=== PATIENT | female | born 1930 | race Caucasian/White ===

== ENCOUNTER → 2017-01-30 | Outpatient (CLI) | payer OTHER ==
[~2017-01-30] MED LIST: BAYER CHEWABLE81 MG PO; COREG6.25 MG PO; CULTURELLE1 EACH PO; CYMBALTA60 MG PO; DUONEB 2.5-0.5 M3 ML INH; FLOMAX0.4 MG PO; GLUCERNA237 M1 PO; GLUTOSE GEL 1515 G1 PO; HYDROCODONE-AP1 EAC6 PO; IRON325 PO; KEFLEX500 M1 PO; LANOXIN 0.120.125 M1 PO; LANTUS100 UNIT/M SUBQ; LASIX 40 MG TAB40 M2 PO; LISINOPRIL2.5 MG PO; NOVOLOG100 UNIT/1 SUBQ; PEPCID20 MG PO; POTASSIUM20 PO; PROAIR HFA8.5 GM INH; REMERON15 MG PO; TRAMADOL 50 MG50 MG PO; TYLENOL325 MG PO; VITAMIN D31000 UNI3 PO
== END ==
LOC: ULTRA 09:11
DX: R10.9 Unspecified abdominal pain (principal); R63.4 Abnormal weight loss

== ENCOUNTER 2017-01-31 22:50 | Emergency (ER) | payer OTHER ==
[~2017-01-31] VITALS: Ht 180.3 cm; Wt 76.7 kg
[2017-01-31] MEDS ORDERED: DUONEB 2.5-0.5 M3 ML INH (23:01)
[2017-01-31] MEDS ORDERED: TYLENOL325 MG PO (23:02)
[2017-01-31] MEDS ORDERED: HYDROCODONE-AP1 EAC6 PO (23:02)
[2017-01-31] MEDS ORDERED: GLUTOSE GEL 1515 G1 PO (23:03)
[2017-01-31] MEDS ORDERED: PROAIR HFA8.5 GM INH (23:03)
[2017-01-31] MEDS ORDERED: LANTUS100 UNIT/M SUBQ (23:04)
[2017-01-31] MEDS ORDERED: REMERON15 MG PO (23:04)
[2017-01-31] MEDS ORDERED: LASIX 40 MG TAB40 M2 PO (23:05)
[2017-01-31] MEDS ORDERED: LISINOPRIL2.5 MG PO (23:05)
[2017-01-31] MEDS ORDERED: NOVOLOG100 UNIT/1 SUBQ (23:05)
[2017-01-31] MEDS ORDERED: POTASSIUM20 PO (23:05)
[2017-01-31] MEDS ORDERED: BAYER CHEWABLE81 MG PO (23:06)
[2017-01-31] MEDS ORDERED: VITAMIN D31000 UNI3 PO (23:06)
[2017-01-31] MEDS ORDERED: COREG6.25 MG PO (23:06)
[2017-01-31] MEDS ORDERED: IRON325 PO (23:06)
[2017-01-31] MEDS ORDERED: CYMBALTA60 MG PO (23:07)
[2017-01-31] MEDS ORDERED: PEPCID20 MG PO (23:07)
[2017-01-31] MEDS ORDERED: LANOXIN 0.120.125 M1 PO (23:07)
[2017-01-31] MEDS ORDERED: CULTURELLE1 EACH PO (23:07)
[2017-01-31] MEDS ORDERED: GLUCERNA237 M1 PO (23:08)
[2017-02-01] MEDS ORDERED: TRAMADOL 50 MG50 MG PO (00:59)
[2017-02-01 01:31] LABS: URINE BILIRUBIN NEGATIVE (Negative); URINE BLOOD NEGATIVE (Negative); URINE COLOR YELLOW; URINE GLUCOSE-RANDOM* NEGATIVE (Negative); URINE KETONES NEGATIVE (Negative); URINE PROTEIN (DIPSTICK) NEGATIVE (Negative); URINE UROBILINOGEN 0.2 E.U./dl (0.2-1.0)
[2017-02-01 01:38] LABS: URINE LEUKOCYTES-REFLEX 3+ (Negative)
[2017-02-01 01:41] LABS: CASTS None Seen /LPF (None Seen); SQUAMOUS None Seen /LPF (0-3)
[2017-02-01 01:42] LABS: CRYSTALS None Seen /LPF (None Seen); URINE RBC None Seen /HPF (0-2)
[2017-02-01] MEDS ORDERED: KEFLEX500 M1 PO (01:52)
[2017-02-01] MEDS ORDERED: FLOMAX0.4 MG PO (01:52)
[2017-02-01 02:10] VITALS: BP 98/49
== END 2017-02-01 02:10 ==
LOC: ER 22:50
PROVIDERS: Emergency Medicine
DX: S02.2XXA Fracture of nasal bones, initial encounter for closed fracture (principal); N39.0 Urinary tract infection, site not specified; I11.0 Hypertensive heart disease with heart failure; I50.9 Heart failure, unspecified; E78.5 Hyperlipidemia, unspecified; G89.29 Other chronic pain; K21.9 Gastro-esophageal reflux disease without esophagitis; I48.91 Unspecified atrial fibrillation; F32.9 Major depressive disorder, single episode, unspecified; J44.9 Chronic obstructive pulmonary disease, unspecified; E11.9 Type 2 diabetes mellitus without complications; Z79.4 Long term (current) use of insulin; W06.XXXA Fall from bed, initial encounter; Y93.89 Activity, other specified; Y92.89 Other specified places as the place of occurrence of the external cause; Y99.8 Other external cause status

== ENCOUNTER → 2017-02-05 | Outpatient (CLI) | payer OTHER ==
[~2017-02-05] MED LIST changes: +CIPRO500 MG PO
== END ==
LOC: CAT 12:40
DX: Z53.8 Procedure and treatment not carried out for other reasons (principal)